=== PATIENT | female | born 1960 | race Caucasian/White ===

== ENCOUNTER 2018-02-26 10:14 | Observation (INO) | payer OTHER ==
[2018-02-26] MEDS: ONDANSETRON 4 MG INJ IV (10:54)
[2018-02-26] MEDS: morphine 4 MG/ML VIAL IV (10:54)
[2018-02-26] MEDS: ASPIRIN 325 MG TAB PO (10:54)
[2018-02-26] MEDS: NITROGLYCERIN 2% 1 GM OINT PKT TD (10:55)
[2018-02-26 11:06] LABS: ADD MAN DIFF? NO; BASOPHIL # 0.1 10^3/ul (0.0-0.1); BASOPHILS % 0.6 % (0.0-2.0); EOSINOPHILS # 0.1 10^3/ul (0.0-0.5); EOSINOPHILS % 1.2 % (0.0-7.0); HEMATOCRIT 38.1 % (37.0-47.0); HEMOGLOBIN 12.1 g/dl (12.0-16.0); LYMPHOCYTES % 34.5 % (15.0-51.0); MEAN CORPUSCULAR HEMOGLOBIN 27.6 pg (29.0-33.0); MEAN CORPUSCULAR HGB CONC 31.8 g/dl (32.0-37.0); MEAN PLATELET VOLUME 9.5 fl (7.4-10.4); MONOCYTE # 0.7 10^3/ul (0.3-0.9); MONOCYTES % 6.2 % (0.0-11.0); NEUTROPHIL # 6.6 10^3/ul (1.6-7.5); NEUTROPHILS % 57.2 % (39.0-77.0); PLATELET COUNT 364 10^3/UL (140-415); RED BLOOD COUNT 4.38 10^6/ul (4.20-5.40); RED CELL DISTRIBUTION WIDTH 12.6 % (11.5-14.5)
[2018-02-26 11:06] LABS: WHITE BLOOD COUNT 11.5 10^3/ul (4.8-10.8)
[2018-02-26 11:12] LABS: ALANINE AMINOTRANSFERASE 26 IU/L (13-69); ALBUMIN 4.6 g/dl (3.3-4.9); ALBUMIN/GLOBULIN RATIO 1.21; ALKALINE PHOSPHATASE 54 IU/L (42-121); ANION GAP 21 (8-16); ASPARTATE AMINO TRANSFERASE 26 IU/L (15-46); BILIRUBIN,INDIRECT 0.4 mg/dl (0-1.1); BILIRUBIN,TOTAL 0.4 mg/dl (0.2-1.3); BLOOD UREA NITROGEN 33 mg/dl (7-20); CARBON DIOXIDE 21 mmol/L (21-31); CHLORIDE 109 mmol/L (97-110); CREATININE 1.89 mg/dl (0.44-1.00); GLUCOSE 168 mg/dl (70-220); POTASSIUM 4.8 mmol/L (3.5-5.1); SODIUM 146 mmol/L (135-144); TOTAL PROTEIN 8.4 g/dl (6.1-8.1)
[2018-02-26 11:23] LABS: TROPONIN-I 0.018 ng/ml (0.000-0.120)
[2018-02-26 11:39] LABS: INR 0.97
[2018-02-26 12:06] LABS: ADD UMIC YES; UR ASCORBIC ACID NEGATIVE (NEGATIVE); UR BILIRUBIN (Dip) NEGATIVE (NEGATIVE); UR BLOOD (Dip) NEGATIVE (NEGATIVE); UR CLARITY CLEAR (CLEAR); UR COLOR YELLOW (YELLOW); UR GLUCOSE (Dip) NEGATIVE (NEGATIVE); UR KETONES (Dip) NEGATIVE (NEGATIVE); UR LEUKOCYTE ESTERASE (Dip) 2+ Leu/ul (NEGATIVE); UR NITRITE (Dip) NEGATIVE (NEGATIVE); UR RBC 1 /HPF (0-5); UR SPECIFIC GRAVITY (Dip) 1.018 (1.003-1.030); UR SQUAMOUS EPITHELIAL CELL FEW /HPF (FEW); UR TOTAL PROTEIN (Dip) NEGATIVE (NEGATIVE); UR UROBILINOGEN (Dip) NEGATIVE (NEGATIVE); UR WBC 5 /HPF (0-5)
[2018-02-26] MEDS ORDERED: ACETAMINOPHEN 325 MG TAB PO ×2 (13:00→14:30)
[2018-02-26] MEDS ORDERED: ONDANSETRON 4 MG INJ IV (13:00)
[2018-02-26] MEDS ORDERED: NACL 0.9% 3 ML SYG IV (14:30)
[2018-02-26 15:31] LABS: HEMOGLOBIN A1C 8.9 % (0-5.9)
[2018-02-26 15:43] LABS: FREE T4 (FREE THYROXINE) 1.76 ng/dl (0.64-1.79)
[2018-02-26] MEDS: HYDROCODONE/APAP (5/325) TAB PO (16:23)
[2018-02-26 17:25] LABS: TROPONIN-I 0.019 ng/ml (0.000-0.120)
[2018-02-26 17:29] LABS: CK INDEX 1.8; CREATINE KINASE 66 IU/L (23-200)
[2018-02-26] MEDS: INSULIN ASPART [NOVOLOG] 3 ML PEN SC ×3 (17:58→20:49)
[2018-02-26] MEDS: ATORVASTATIN 20 MG TAB PO (20:31)
[2018-02-26] MEDS: GABAPENTIN 100 MG CAP PO (20:31)
[2018-02-26] MEDS: INSULIN GLARGINE [LANTus] (100 UNITS/ML) SYG SC (20:49)
[2018-02-26] MEDS: HEPARIN 5,000 UNIT/0.5 ML VIAL SC (22:29)
[2018-02-27 05:39] LABS: ADD MAN DIFF? NO
[2018-02-27 05:46] LABS: BASOPHIL # 0.1 10^3/ul (0.0-0.1); BASOPHILS % 0.8 % (0.0-2.0); EOSINOPHILS # 0.2 10^3/ul (0.0-0.5); EOSINOPHILS % 2.5 % (0.0-7.0); HEMATOCRIT 34.9 % (37.0-47.0); HEMOGLOBIN 11.1 g/dl (12.0-16.0); LYMPHOCYTES # 4.3 10^3/ul (0.8-2.9); LYMPHOCYTES % 48.2 % (15.0-51.0); MEAN CORPUSCULAR HEMOGLOBIN 28.2 pg (29.0-33.0); MEAN CORPUSCULAR HGB CONC 31.8 g/dl (32.0-37.0); MEAN CORPUSCULAR VOLUME 88.6 fl (82.0-101.0); MEAN PLATELET VOLUME 9.6 fl (7.4-10.4); MONOCYTE # 0.8 10^3/ul (0.3-0.9); MONOCYTES % 8.6 % (0.0-11.0); NEUTROPHIL # 3.6 10^3/ul (1.6-7.5); NEUTROPHILS % 39.5 % (39.0-77.0); PLATELET COUNT 291 10^3/UL (140-415); RED BLOOD COUNT 3.94 10^6/ul (4.20-5.40); RED CELL DISTRIBUTION WIDTH 13.1 % (11.5-14.5)
[2018-02-27] MEDS: HEPARIN 5,000 UNIT/0.5 ML VIAL SC ×3 (05:51→21:58)
[2018-02-27 06:07] LABS: PHOSPHORUS 4.4 mg/dl (2.5-4.9)
[2018-02-27 06:07] LABS: CHOL/HDL RATIO 3.8 RATIO; CHOLESTEROL 179 mg/dl (100-200); HDL CHOLESTEROL 46 mg/dl (37-92); LDL CHOLESTEROL,CALCULATED 96 mg/dl; MAGNESIUM 1.9 mg/dl (1.7-2.5); TRIGLYCERIDES 186 mg/dl (0-149)
[2018-02-27 06:13] LABS: ALANINE AMINOTRANSFERASE 25 IU/L (13-69); ALBUMIN 3.8 g/dl (3.3-4.9); ALBUMIN/GLOBULIN RATIO 1.11; ALKALINE PHOSPHATASE 42 IU/L (42-121); ANION GAP 13 (8-16); ASPARTATE AMINO TRANSFERASE 26 IU/L (15-46); BILIRUBIN,INDIRECT 0.4 mg/dl (0-1.1); BILIRUBIN,TOTAL 0.4 mg/dl (0.2-1.3); BLOOD UREA NITROGEN 32 mg/dl (7-20); CALCIUM 9.5 mg/dl (8.4-10.2); CARBON DIOXIDE 26 mmol/L (21-31); CHLORIDE 107 mmol/L (97-110); GLUCOSE 133 mg/dl (70-220); POTASSIUM 4.7 mmol/L (3.5-5.1); SODIUM 141 mmol/L (135-144); TOTAL PROTEIN 7.2 g/dl (6.1-8.1)
[2018-02-27 06:16] LABS: TROPONIN-I 0.023 ng/ml (0.000-0.120)
[2018-02-27] MEDS: INSULIN ASPART [NOVOLOG] 3 ML PEN SC ×7 (07:55→20:01)
[2018-02-27] MEDS: FENOFIBRATE 145 MG TAB PO (08:07)
[2018-02-27] MEDS: CLOPIDOGREL 75 MG TAB PO (08:08)
[2018-02-27] MEDS: METOPROLOL (XL) 50 MG TAB PO (08:08)
[2018-02-27] MEDS: ASPIRIN 81 MG TAB PO (08:08)
[2018-02-27 13:55] LABS: CREATININE,URINE RANDOM 56.02 mg/dl (20-320); PROTEIN/CREAT RATIO 0.19 RATIO
[2018-02-27 13:55] LABS: SODIUM,URINE RANDOM 44 mmol/L (30-90)
[2018-02-27] MEDS: GABAPENTIN 100 MG CAP PO (20:00)
[2018-02-27] MEDS: ATORVASTATIN 20 MG TAB PO (20:00)
[2018-02-27] MEDS: INSULIN GLARGINE [LANTus] (100 UNITS/ML) SYG SC (20:01)
[2018-02-28] MEDS: HEPARIN 5,000 UNIT/0.5 ML VIAL SC (05:30)
[2018-02-28 05:58] LABS: ADD MAN DIFF? NO
[2018-02-28 06:19] LABS: WHITE BLOOD COUNT 8.7 10^3/ul (4.8-10.8)
[2018-02-28 06:19] LABS: BASOPHIL # 0.1 10^3/ul (0.0-0.1); BASOPHILS % 0.7 % (0.0-2.0); EOSINOPHILS # 0.3 10^3/ul (0.0-0.5); HEMATOCRIT 36.6 % (37.0-47.0); HEMOGLOBIN 11.6 g/dl (12.0-16.0); LYMPHOCYTES # 4.2 10^3/ul (0.8-2.9); LYMPHOCYTES % 48.3 % (15.0-51.0); MEAN CORPUSCULAR HEMOGLOBIN 28.3 pg (29.0-33.0); MEAN CORPUSCULAR HGB CONC 31.7 g/dl (32.0-37.0); MEAN CORPUSCULAR VOLUME 89.3 fl (82.0-101.0); MEAN PLATELET VOLUME 9.6 fl (7.4-10.4); MONOCYTE # 0.7 10^3/ul (0.3-0.9); NEUTROPHIL # 3.5 10^3/ul (1.6-7.5); NEUTROPHILS % 39.7 % (39.0-77.0); PLATELET COUNT 306 10^3/UL (140-415); RED CELL DISTRIBUTION WIDTH 12.6 % (11.5-14.5)
[2018-02-28 06:35] LABS: ANION GAP 12 (8-16); BLOOD UREA NITROGEN 29 mg/dl (7-20); CALCIUM 9.6 mg/dl (8.4-10.2); CARBON DIOXIDE 27 mmol/L (21-31); CHLORIDE 107 mmol/L (97-110); CREATININE 1.41 mg/dl (0.44-1.00); GLUCOSE 108 mg/dl (70-220); POTASSIUM 4.5 mmol/L (3.5-5.1); SODIUM 141 mmol/L (135-144)
[2018-02-28 06:36] LABS: PHOSPHORUS 4.4 mg/dl (2.5-4.9)
[2018-02-28 06:36] LABS: MAGNESIUM 1.9 mg/dl (1.7-2.5)
[2018-02-28 07:27] LABS: CREATINE KINASE 48 IU/L (23-200)
[2018-02-28 07:27] LABS: URIC ACID 4.4 mg/dl (3.1-7.9)
[2018-02-28] MEDS: INSULIN ASPART [NOVOLOG] 3 ML PEN SC ×4 (07:45→11:37)
[2018-02-28] MEDS: FENOFIBRATE 145 MG TAB PO (08:00)
[2018-02-28] MEDS: ASPIRIN 81 MG TAB PO (08:00)
[2018-02-28] MEDS: CLOPIDOGREL 75 MG TAB PO (08:00)
[2018-02-28] MEDS: METOPROLOL (XL) 50 MG TAB PO (08:00)
== END 2018-02-28 13:30 | disposition home or self-care (01) ==
LOC: E/R 10:14 → 6WM 12:58
PROVIDERS: Internal Medicine
DX: R07.89 Other chest pain (principal); I25.10 Atherosclerotic heart disease of native coronary artery without angina pectoris; E78.5 Hyperlipidemia, unspecified; I25.5 Ischemic cardiomyopathy; I12.9 Hypertensive chronic kidney disease with stage 1 through stage 4 chronic kidney disease, or unspecified chronic kidney disease; E11.22 Type 2 diabetes mellitus with diabetic chronic kidney disease; M54.9 Dorsalgia, unspecified; N17.9 Acute kidney failure, unspecified; N18.2 Chronic kidney disease, stage 2 (mild); Z95.1 Presence of aortocoronary bypass graft
CPT/HCPCS: 36415; 70450; 71045; 76705; 76775; 80048; 80053; 80061; 81001; 81003; 82550; 82553; 82570; 82962; 83036; 83735; 84100; 84300; 84439; 84443; 84484; 84560; 85025; 85610; 85730; 87086; 87400; 89190; 93005; 93306; 93880; 96374; 96375; 99285-25; G0378